=== PATIENT | male | born 1995 | race Two or more races ===

== ENCOUNTER 2020-02-28 13:06 | Inpatient (IN) | payer MEDICAID, OTHER ==
[~2020-02-28] VITALS: Ht 188 cm; Wt 67.9 kg
[2020-02-28] MEDS ORDERED: SODIUM CHLORIDE 0.9% 1,000 ML IV ONE (13:15)
[2020-02-28] MEDS ORDERED: LORazepam 0.5 MG TAB PO ONE (14:00)
[2020-02-28] MEDS ORDERED: OLANZapine 5 MG TAB PO ONE (14:00)
[2020-02-28 14:13] LABS: Basophils # (auto) 0 10 ^3/uL (0-0.2); Basophils % (auto) 0.7 % (0.0-2.0); Eosinophils # (auto) 0 10 ^3/uL (0-0.8); Eosinophils % (auto) 0.4 % (0.0-7.0); Hemoglobin 13.5 g/dL (13.5-17.5); Lymphocytes # (auto) 0.5 10 ^3/uL (0.4-5.4); Lymphocytes % (auto) 8.3 % (10.0-50.0); Mean Corpuscular Hemoglobin 31.2 pg (28.0-32.0); Mean Corpuscular Hgb Conc. 33.8 g/dL (32.0-36.0); Mean Corpuscular Volume 92.5 fL (80.0-100.0); Monocytes # (auto) 0.3 10 ^3/uL (0-1.3); Monocytes % (auto) 4.2 % (0.0-12.0); Neutrophils # (auto) 5.5 10 ^3/uL (1.6-8.6); Neutrophils % (auto) 86.4 % (37.0-80.0); Platelet Count (auto) 184 10^3/uL (140-450); Red Blood Cells 4.32 10^6/uL (4.5-5.90); Red Cell Distribution Width 13.9 % (11.8-14.3); White Blood Cell 6.4 10^3/uL (4.4-10.8)
[2020-02-28] MEDS ORDERED: LORazepam 2MG/ML-1ML VIAL IV ONE (14:30)
[2020-02-28 14:41] LABS: Anion Gap 6 (5-15); Blood Alcohol < 3.0 mg/dL (0-5); Blood Urea Nitrogen 5 mg/dL (7-18); Calcium 7.9 mg/dL (8.5-10.1); Carbon Dioxide 23 mmol/L (21-32); Chloride 105 mmol/L (98-107); Glucose 129 mg/dL (74-106); Potassium 3.5 mmol/L (3.5-5.1); Sodium 134 mmol/L (136-145)
[2020-02-28 14:45] LABS: Alanine Aminotransferase 20 U/L (16-61); Alkaline Phosphatase 71 U/L (45-117); Aspartate Aminotransferase 17 U/L (15-37); BUN/Creatinine Ratio 5.1; Bilirubin, Total 0.8 mg/dL (0.2-1.0); GFR African American 119 mL/min; GFR Non-African American 98 mL/min; Total Protein 6.1 g/dL (6.4-8.2)
[2020-02-28] MEDS ORDERED: HALOPERIDOL LACTATE 5 MG/ML INJ VIAL IM ONE (14:45)
[2020-02-28 14:52] LABS: Urine WBC None Seen /hpf (0 - 3)
[2020-02-28 15:08] LABS: Urine Amorphous Crystal FEW /hpf (None Seen); Urine Bacteria NONE SEEN /hpf (None Seen); Urine Blood Negative /uL (Negative); Urine Hyaline Cast FEW /lpf (0 - 2); Urine Mucus FEW (None Seen); Urine Specific Gravity 1.023 (1.001-1.035)
[2020-02-28 15:20] LABS: Amphetamine Screen, Urine POSITIVE (NEGATIVE); Barbiturate Scree,Urine NEGATIVE (NEGATIVE); Benzodiazephine Screen, Urine NEGATIVE (NEGATIVE); Cocaine Screen, Urine NEGATIVE (NEGATIVE); Opiate Scree,Urine NEGATIVE (NEGATIVE)
[2020-02-28 15:28] LABS: Cannabinoid Screen, Urine POSITIVE (NEGATIVE); Phencyclidine Screen, Urine NEGATIVE (NEGATIVE)
[2020-02-28] MEDS ORDERED: ACETAMINOPHEN 325 MG TAB PO ONE (20:00)
[2020-02-29] MEDS ORDERED: SODIUM CHLORIDE 0.9% 1,000 ML IV ONE ×2 (01:15)
[2020-02-29] MEDS ORDERED: ACETAMINOPHEN 325 MG TAB PO ONE (01:30)
[2020-02-29 01:41] LABS: Acetaminophen 2.2 ug/mL (10-30); Salicylate < 1.7 mg/dL (2.8-20.0)
[2020-02-29] MEDS ORDERED: IBUPROFEN 400 MG TAB PO ONE (02:15)
[2020-02-29] MEDS ORDERED: ASPirin 81 mg TAB PO ONE (04:15)
[2020-02-29] MEDS ORDERED: MORPHINE SULF INJ 2 MG/ML SYRINGE 1ML IV PRN (07:15)
[2020-02-29] MEDS ORDERED: NITROGLYCERIN 0.4 MG SL TAB SL PRN (07:15)
[2020-02-29] MEDS: SODIUM CHLORIDE 0.9% 1,000 ML IV SCH ×2 (07:15→22:13)
[2020-02-29] MEDS ORDERED: ONDANSETRON HCL 4 MG/2 ML VIAL IV PRN (07:15)
[2020-02-29 10:00] VITALS: BP 86/46
[2020-02-29] MEDS: FAMOTIDINE 20 MG TAB PO SCH ×2 (10:00→22:07)
[2020-02-29] MEDS ORDERED: cefTRIAXone 1GM/50ML D5W 50 ML IV ONE (11:15)
[2020-02-29] MEDS ORDERED: DOXYCYCLINE 100 MG TAB/CAP PO ONE (11:15)
--- NOTE | 2020-02-29 13:44 | NUR ---
PT REFUSED VITALS @ 3349
[2020-02-29 17:00] VITALS: BP 123/64
[2020-02-29 17:14] LABS: Albumin 2.7 g/dL (3.4-5.0); BUN/Creatinine Ratio 9.6; Calcium 7.9 mg/dL (8.5-10.1); Potassium 3.9 mmol/L (3.5-5.1)
[2020-02-29 17:17] LABS: Bilirubin, Total 0.9 mg/dL (0.2-1.0); Total Protein 6.2 g/dL (6.4-8.2)
[2020-02-29 22:00] VITALS: BP 109/59
[2020-02-29] MEDS: DOXYCYCLINE 100 MG TAB/CAP PO SCH (22:08)
[2020-03-01] MEDS: SODIUM CHLORIDE 0.9% 1,000 ML IV SCH ×2 (08:15→09:26)
[2020-03-01] MEDS ORDERED: cefTRIAXone 1GM/50ML D5W 50 ML IV SCH (09:00)
[2020-03-01] MEDS: FAMOTIDINE 20 MG TAB PO SCH ×2 (09:25→22:54)
[2020-03-01] MEDS: DOXYCYCLINE 100 MG TAB/CAP PO SCH ×2 (09:25→22:55)
[2020-03-01 13:53] LABS: Basophils # (auto) 0 10 ^3/uL (0-0.2); Basophils % (auto) 0.5 % (0.0-2.0); Eosinophils # (auto) 0 10 ^3/uL (0-0.8); Hematocrit 39.1 % (41.0-53.0); Hemoglobin 13.4 g/dL (13.5-17.5); Lymphocytes # (auto) 0.5 10 ^3/uL (0.4-5.4); Lymphocytes % (auto) 6.8 % (10.0-50.0); Mean Corpuscular Hemoglobin 31.1 pg (28.0-32.0); Mean Corpuscular Hgb Conc. 34.2 g/dL (32.0-36.0); Monocytes # (auto) 0.3 10 ^3/uL (0-1.3); Monocytes % (auto) 3.5 % (0.0-12.0); Neutrophils # (auto) 6.5 10 ^3/uL (1.6-8.6); Neutrophils % (auto) 89.2 % (37.0-80.0); Red Cell Distribution Width 13.5 % (11.8-14.3); White Blood Cell 7.3 10^3/uL (4.4-10.8)
[2020-03-01 13:55] LABS: Platelet Count (auto) 120 10^3/uL (140-450)
[2020-03-01 14:20] LABS: Calcium 8.2 mg/dL (8.5-10.1); Potassium 3.8 mmol/L (3.5-5.1)
[2020-03-01 14:22] LABS: BUN/Creatinine Ratio 12.2
--- NOTE | 2020-03-01 14:38 | NUR ---
assessment re: ss consult homeless Patient is a 24 year old male who is not answering appropriate. Patient gives me the same answer to all questions. Patient needs to be re-evaluated after he is more alert and oriented. I have updated Fer RODRÍGUEZ and informed him homeless waiver is in patients chart if he discharges over the weekend. Patient is to sign waiver. RN to offer clothes and a meal. I have provided Fer with homeless resources for patient. Social service to follow up on Wednesday. Addendum: 03/01/20 at 1442 by Edwige JONES Amended: Links added.
--- NOTE | 2020-03-01 19:40 | NUR ---
OPENING SHIFT NOTE Assumed care of patient who is lethargic, but arouses to name. Currently on RA with no s/s of distress. Reports 8/10 back pain. Repositioned for comfort. PIV in left AC is intact and patent. Flushed with 10ml NS. POC discussed and patient verbalizes understanding. Reinforcement needed. Bed is in low locked position with side rails up x2. Call light is within reach and patient encouraged to call for assistance when needed. Will continue to monitor for changes PRN.
[2020-03-01 20:00] VITALS: BP 95/52
--- NOTE | 2020-03-01 21:30 | NUR ---
TEMPERATURE Oral temperature assessed an is 101.8. Blankets removed and temperature in room decreased. Hospitalist to be notified.
[2020-03-01 22:00] VITALS: BP 95/52
--- NOTE | 2020-03-01 22:00 | NUR ---
Received call from Hospitalist, Dr. Brewer. New orders received. Read back and verified.
[2020-03-01] MEDS ORDERED: ACETAMINOPHEN 325 MG TAB PO PRN (22:30)
[2020-03-01] MEDS: cefTRIAXone 1GM/50ML D5W 50 ML IV SCH (22:54)
--- NOTE | 2020-03-01 23:00 | NUR ---
Reassessment Temperature reassessed and is now 99.1 orally.
--- NOTE | 2020-03-01 23:08 | NUR ---
Tele psych consultation request sent vi tele Med.
[2020-03-02 04:58] VITALS: BP 91/50
[2020-03-02 07:23] LABS: Basophils # (auto) 0 10 ^3/uL (0-0.2); Basophils % (auto) 0.5 % (0.0-2.0); Eosinophils # (auto) 0 10 ^3/uL (0-0.8); Eosinophils % (auto) 0.3 % (0.0-7.0); Hematocrit 41.6 % (41.0-53.0); Hemoglobin 13.8 g/dL (13.5-17.5); Lymphocytes # (auto) 0.6 10 ^3/uL (0.4-5.4); Lymphocytes % (auto) 14.3 % (10.0-50.0); Mean Corpuscular Hemoglobin 30.6 pg (28.0-32.0); Mean Corpuscular Hgb Conc. 33.2 g/dL (32.0-36.0); Monocytes # (auto) 0.4 10 ^3/uL (0-1.3); Monocytes % (auto) 9.9 % (0.0-12.0); Neutrophils # (auto) 3.1 10 ^3/uL (1.6-8.6); Platelet Count (auto) 134 10^3/uL (140-450); Red Blood Cells 4.52 10^6/uL (4.5-5.90); Red Cell Distribution Width 13.8 % (11.8-14.3); White Blood Cell 4.1 10^3/uL (4.4-10.8)
--- NOTE | 2020-03-02 07:33 | NUR ---
RECEIVED PATIENT AWAKE, ALERT AND ORIENTED X2, PERIODIC CONFUSION NOTED. PATIENT DENIES SOB AND PAIN AT THIS TIME. PATIENT IS WANTING TO SLEEP MORE. PLAN OF CARE DISCUSSED. PATIENT ADVISED TO CALL FOR ASSISTANCE PRN. BED IN LOW AND LOCKED POSITION, CALL LIGHT AND PHONE WITHIN REACH. WILL CONTINUE TO MONITOR Q1HR AND PRN.
--- NOTE | 2020-03-02 07:38 | NUR ---
TELE PSYCH CONSULT COMPLETED. PATIENT WAS ABLE TO TALK TO PSYCH DOCTOR ONCE AWAKE. WILL AWAIT DOCTOR'S EVALUATION NOTES.
[2020-03-02 07:44] LABS: Albumin 2.6 g/dL (3.4-5.0); Calcium 8.4 mg/dL (8.5-10.1); Potassium 3.7 mmol/L (3.5-5.1)
[2020-03-02 07:47] LABS: Bilirubin, Total 0.6 mg/dL (0.2-1.0); Total Protein 6.6 g/dL (6.4-8.2)
[2020-03-02 08:00] VITALS: BP 112/64
[2020-03-02 09:00] VITALS: BP 112/64
[2020-03-02] MEDS: FAMOTIDINE 20 MG TAB PO SCH (10:17)
[2020-03-02] MEDS: DOXYCYCLINE 100 MG TAB/CAP PO SCH (10:17)
[2020-03-02] MEDS: cefTRIAXone 1GM/50ML D5W 50 ML IV SCH (10:17)
--- NOTE | 2020-03-02 11:07 | NUR ---
PATIENT SEEN IN ROOM W/O TELE MONITOR ON, IV DISCONNECTED, WET FLOOR NOTED AND BATH WATER RUNNING. PER PATIENT HE TOOK A SHOWER, DESPITE THIS CHEMICAL RESEARCH ENGINEER TELLING HIM TO WAIT EARLIER FOR ASSISTANCE.
[2020-03-02] MEDS ORDERED: PIPERACILLIN-TAZOB 3.375GM 100 ML IV ONE (11:15)
[2020-03-02] MEDS ORDERED: VANCOMYCIN PER PHARMACY 0 MG IV SCH (11:15)
[2020-03-02] MEDS ORDERED: PIPERACILLIN-TAZOB 3.375GM 100 ML IV SCH ×2 (12:00→18:00)
[2020-03-02 13:00] VITALS: BP 98/59
--- NOTE | 2020-03-02 15:26 | NUR ---
patient is uncooperative, refusing treatment at this time. keeps taking off tele monitor, hospital gowns, and pulled out IV access. Needing frequent redirection.
[2020-03-02] MEDS ORDERED: VANCOMYCIN 1GM/250ML 250 ML IV SCH (16:00)
--- NOTE | 2020-03-02 16:09 | NUR ---
NO IV ACCESS AT THIS TIME. PATIENT PULLED OUT IV AND REFUSING NEW ONE TO BE INSERTED.
--- NOTE | 2020-03-02 17:15 | NUR ---
PATIENT DISCHARGED PER MD'S ORDER. PATIENT REFUSES ANY FURTHER RESOURCE. PATIENT STATES HE IS GOING TO STAY WITH A FRIEND ON DISCHARGE. TELE MONITOR RETURNED TO ICU.
== END 2020-03-02 17:15 | disposition home or self-care (01) | DRG 812 ==
LOC: EDBD 13:06 → ER 13:06 → TELE 13:07 → TELE-EAST 02-29 09:15 → TELE-WESTW 02-29 13:08
PROVIDERS: ADMIT Nurse Practitioner; ATTEND Internal Medicine Nephrology
DX: T43.621A Poisoning by amphetamines, accidental (unintentional), initial encounter (principal); G92 Toxic encephalopathy; E44.0 Moderate protein-calorie malnutrition; E87.1 Hypo-osmolality and hyponatremia; I45.2 Bifascicular block; R65.10 Systemic inflammatory response syndrome (SIRS) of non-infectious origin without acute organ dysfunction; Z68.1 Body mass index [BMI] 19.9 or less, adult; E86.0 Dehydration; F12.10 Cannabis abuse, uncomplicated; F15.10 Other stimulant abuse, uncomplicated; R74.0 Nonspecific elevation of levels of transaminase and lactic acid dehydrogenase [LDH]; Z20.828 Contact with and (suspected) exposure to other viral communicable diseases; Y92.89 Other specified places as the place of occurrence of the external cause
CPT/HCPCS: 36415; 70450; 71045; 72125; 80048; 80053; 80307; 80320; 80329; 81001; 83735; 84484; 85025; 86703; 87040; 93005; 96361; 96372; 96374; G0378; J0696; J2543

== ENCOUNTER 2020-04-01 18:45 | Emergency (ER) | payer MEDICARE, MEDICAID ==
[~2020-04-01] VITALS: Ht 177.8 cm; Wt 68.0 kg
[2020-04-01 19:07] VITALS: BP 121/79
== END 2020-04-01 19:51 | disposition left against medical advice (07) ==
LOC: EDBD 18:45 → ER 18:54
DX: R07.9 Chest pain, unspecified (principal); M54.9 Dorsalgia, unspecified; F23 Brief psychotic disorder

== ENCOUNTER 2020-07-17 23:07 | Emergency (ER) | payer MEDICARE, MEDICAID ==
[~2020-07-17] VITALS: Ht 182.9 cm; Wt 81.6 kg
[2020-07-17] MEDS ORDERED: LORazepam 0.5 MG TAB PO ONE (23:15)
[2020-07-18 09:33] VITALS: BP 124/76
== END 2020-07-18 09:44 | disposition home or self-care (01) ==
LOC: EDBD 23:07 → ER 23:10
DX: F15.10 Other stimulant abuse, uncomplicated (principal)
CPT/HCPCS: 36415; 80320